=== PATIENT | male | born 1955 | race Caucasian/White ===

== ENCOUNTER 2016-12-18 10:50 | Emergency (ER) | payer OTHER ==
[~2016-12-18] VITALS: Ht 190.5 cm; Wt 131.8 kg
[2016-12-18 10:53] VITALS: BP 126/76; PULSE 74; RESP 18; O2SAT 96
--- NOTE | 2016-12-18 11:09 | ED.REPORT ---
HPI-Extremity Problem Upper Date of Service Dec 18, 2016 ED Provider: Virgie Izaguirre History of Present Illness: 61-year-old male here for sliver in his right middle finger. 45 minutes ago he was putting up plywood in his house when the sliver struck through his glove and into his right middle finger. It is situated perpendicular to his finger at the tip. His tetanus is up-to-date. Nursing Notes Stated Complaint: SLIVER RIGHT MIDDLE FINGER Chief Complaint: Extremity Trauma Allergies: Coded Allergies: No Known Allergies (Unverified Allergy, Unknown, 12/18/16) Scheduled PRN Bacitracin (Bacitracin Ointment) 28.4 Gm Oint...g. 1 APPLIC TP BID PRN PRN infection General Time Seen by MD: 11:02 Chief Complaint Finger injury right 3 Hx Obtained From: Patient Arrived By: Walk-in Onset Occurred: Just prior to arrival Symptom Duration: Constant Caused by: Accidental Context: Occurred at: Home injury Location: : Finger right 3 Quality: Aching Severity: Current: Mild Severity: Maximum: Mild Pertinent Negative: Pt denies other symptoms Immunizations: All up to date Similar Sx Previous: No Past Medical History Past Medical History Notes: HTN Review of Systems Review of Systems Note: finger R 3rd digit Basic Review of Systems Eyes: Vision NL ENT: Hearing NL Respiratory: No shortness of breath Allergy / Immune: No allergy Psychiatric: Normal thought content Constitutional: Denies: Chills, Fever Complete sys rev & neg: except as marked. Physical Exam Physical Exam Notes: sliver noted perpendicular to digit at tip of R 3rd digit. no bleeding. distal to the bone has FROM of digit Initial Vital Signs Vital Signs (First) Date Time Temp Pulse Resp B/P Pulse Ox O2 Delivery O2 Flow Rate FiO2 12/18/16 10:53 36.9 74 18 126/76 96 Room Air Initial VS: Reviewed, Vital signs normal General/Constitutional: Well-developed Head / Eyes: Atraumatic Respiratory: Breath sounds normal, Clear to auscultation, No respiratory distress Cardiovascular: Regular rate & rhythm, Heart sounds normal Skin: Warm, Dry Neurologic: Alert, Oriented, Nonfocal Psychiatric: Mood/affect normal, Behavior normal, Normal thought content Procedures Procedure Notes: Digital block with bupivacaine no epi to right third digit. Excellent anesthesia was obtained. Use a number 11 blade to cut open the tip of the finger to lift the splinter out as I was unable to just pull the splinter out. Remove the entire splinter. Irrigated with saline solution .Placed 2 5-0 nylon sutures to close wound. Patient tolerated well. Discharge & Departure Impression: Primary Impression: Laceration of right middle finger with foreign body w/o damage to nail Encounter type: initial encounter Qualified Code: S61.222A - Laceration with foreign body of right middle finger without damage to nail, initial encounter Disposition: Home Discharge Condition All VS Reviewed: Yes Condition: Stable Patient Instructions: Acute Wound Care (ED) Additional Instructions: clean wound with soap and water daily, apply bacitracin ointment and bandage twice a day. Do not soak wound. For signs of infection like erythema, purulent drainage, increasing pain and swelling and follow up immediately if these occur. Otherwise follow-up in 7 days or PCP or suture removal Referrals: Yolanda Mane PA-C (PCP) EDSupervising Provider for APC: Anmol Devi MD, Linnea K ARNP Dec 18, 2016 11:09
[2016-12-18] MEDS ORDERED: BACI28.4 TP (11:49)
== END 2016-12-18 12:06 | disposition home or self-care (01) ==
LOC: SED 10:50
DX: S61.222A Laceration with foreign body of right middle finger without damage to nail, initial encounter (principal); W26.8XXA Contact with other sharp object(s), not elsewhere classified, initial encounter; Y92.009 Unspecified place in unspecified non-institutional (private) residence as the place of occurrence of the external cause; Y93.H9 Activity, other involving exterior property and land maintenance, building and construction; Y99.8 Other external cause status; I10 Essential (primary) hypertension